=== PATIENT | male | born 1945 | race Two or more races ===

== ENCOUNTER → 2024-10-11 | Outpatient (CLI) | payer MEDICARE, MEDICAID, SELFPAY ==
[2024-10-11 08:43] LABS: Prostate Specific Antigen 0.21 ng/mL (0-4.00)
== END | disposition home or self-care (01) ==
PROVIDERS: Referring Provider Urology; Visit Provider Urology
DX: N40.1 Benign prostatic hyperplasia with lower urinary tract symptoms (principal)
CPT/HCPCS: 36415; 84153

== ENCOUNTER → 2024-12-09 | Outpatient (BNVA) | payer MEDICARE, MEDICAID, SELFPAY | END | disposition home or self-care (01) | PROVIDERS: Visit Provider Urology | DX: N40.0 Benign prostatic hyperplasia without lower urinary tract symptoms (principal); N52.9 Male erectile dysfunction, unspecified; I10 Essential (primary) hypertension; E66.9 Obesity, unspecified; Z68.30 Body mass index [BMI] 30.0-30.9, adult | CPT/HCPCS: 81003; 99212; 99213; G0463 ==